=== PATIENT | female | born 1945 | race Caucasian/White ===

== ENCOUNTER 2024-05-08 13:19 | Emergency (ER) | payer MEDICARE, OTHER, SELFPAY ==
--- NOTE | ~2024-05-08 | CT_ITS ---
EXAMINATION: CT brain wo con DATE: 05/08/2024 14:22 INDICATION: AMS/syncope . TECHNIQUE: Computed tomography (CT) of the head was performed without intravenous contrast. The mA wa s adjusted according to patient size. Iterative reconstruction technique was employed. The dose-lengt h product was 908.00 mGy-cm. COMPARISON: None. FINDINGS: No acute intracranial hemorrhage or extra-axial fluid collection. No hydrocephalus, mass, or herniation. No acute ischemic infarct. Unremarkable dural venous sinus attenuation. No acute osseous abnormality. Trace left mastoid fluid, the remaining aerated spaces are clear. Moderate atrophy and chronic white matter change. Atherosclerotic intracranial calcification. Bilater al lens replacements. IMPRESSION: No acute intracranial process. Reviewed, dictated and finalized at location K.
--- NOTE | ~2024-05-08 | XR_ITS ---
EXAMINATION: XR chest 1V portable Exam Date/Time: 05/08/2024 14:53 CDT HISTORY: h/o CHF; syncope Comparison: None. RESULT: Lines, tubes, and devices: None. Lungs and pleura: Clear. Cardiomediastinal silhouette: Unremarkable. Other: No acute osseous or upper abdominal finding. IMPRESSION: No acute cardiopulmonary process. Reviewed, dictated and finalized at location K.
[2024-05-08 13:25] VITALS: BP 106/64; PULSE 76; RESP 16; TEMP 36.6; O2SAT 100
[2024-05-08 13:31] VITALS: PULSE 80
--- NOTE | 2024-05-08 13:32 | ECG_ITS ---
Test Date: 2024-05-08 13:39:26 Measurements Intervals [place] Rate: 73 P: -64 ID: [id number] QRS: -46 QRSD: 114 T: 13 QT: 367 QTc: 406 Interpretive Statements JUNCTIONAL RHYTHM PATTERN CONSISTENT WITH PULMONARY DISEASE LEFT ANTERIOR FASCICULAR BLOCK [QRS AXIS <= -45, QR IN I, RS IN II] MINIMAL VOLTAGE CRITERIA FOR LVH, CONSIDER NORMAL VARIANT [MEETS CRITERIA IN ONE OF: R(aVL), S(V1), R(V5), R(V5/V6)+S(V1)] No previous ECG available for comparison Electronically Signed On 05-08-2024 13:50:54 CDT by Ralph Hirsch M.D.
[2024-05-08 14:17] LABS: Basophils Absolute Auto 0.1 K/mm3 (0.0-0.1); Basophils Percent Auto 0.8 % (0.2-1.2); Eosinophils Absolute Auto 0.1 K/mm3 (0-0.3); Eosinophils Percent Auto 1.8 % (0-4.4); Hemoglobin 12.7 g/dL (12.0-15.0); Immature Granulocyte Absolute 0.02 K/mm3 (0.00-0.031); Immature Granulocyte Percent A 0.3 % (0-0.5); Lymphocytes Absolute Auto 1.86 K/mm3 (0.9-3.2); Lymphocytes Percent Auto 27.9 % (18.3-44.2); Mean Corpuscular HGB Conc 33.4 g/dl (32-36); Mean Corpuscular Hemoglobin 31.8 pg (26-34); Mean Corpuscular Volume 95.2 fl (80-100); Mean Platelet Volume 9.9 fl (7.4-10.4); Monocytes Absolute Auto 0.6 K/mm3 (0.1-0.6); Monocytes Percent Auto 9.6 % (2.6-8.5); Neutrophils Percent Auto 59.6 % (45.5-73.1); Platelet Count Result 226 k/mm3 (150-375); Red Blood Count 3.99 M/mm3 (4.2-5.4); White Blood Count 6.7 K/mm3 (4.5-10.0)
[2024-05-08 14:24] LABS: Alanine Aminotransferase 12 U/L (6-35); Albumin Level 3.9 g/dL (3.5-5.1); Alkaline Phosphatase 87 U/L (38-126); Anion Gap 4 mmol/L (4-12); Aspartate Amino Transferase 20 U/L (14-36); Bilirubin,Total 0.5 mg/dL (0.2-1.3); Blood Urea Nitrogen 17 mg/dL (7-17); Calcium 9.5 mg/dL (8.4-10.2); Carbon Dioxide 27 mmol/L (22-30); Chloride 105 mmol/L (98-107); Estimated CRCL calculation 50 ml/min; Estimated Glomerular Filt Rate 60; Glucose 107 mg/dL (65-110); Potassium 4.3 mmol/L (3.4-5.0); Sodium 136 mmol/L (137-145)
[2024-05-08 14:33] LABS: NT Pro B Type Natriuretic Pept 214 pg/mL (19.9-100)
[2024-05-08 15:22] VITALS: BP 101/54; PULSE 88; RESP 20; O2SAT 98
--- NOTE | 2024-05-08 19:41 | ED.SYNCOPE ---
HPI - Syncope General Chief Complaint: Weakness Stated Complaint: weakness Time Seen by Provider: 05/08/24 13:24 History of Present Illness HPI narrative: patient was at a restaurant eating lunch with her family when she suddenly felt like she was going to pass out, she got lightheaded, and then slumped over in her chair. This happened a few more times and then she came back to normal, her family convinced her to come to the emergency room. She has a remote history of CHF for which she does not take medications and does not see doctors. Related Data Allergies Allergy/AdvReac Type Severity Reaction Status Date / Time No Known Allergies Allergy Verified 05/08/24 13:48 Review of Systems Review of Systems: All systems reviewed & are unremarkable except as noted in HPI and below PMFSH Social History Social History Smoking status: Former smoker Alcohol intake: never Exam Narrative: EXAMINATION OF ORGAN SYSTEMS/BODY AREAS: Constitutional: Vital signs per nursing GENERAL:[No acute distress, non-toxic appearing.] HEAD: Normal with no signs of head trauma. EYES: EOMI, conjunctiva normal ENT: Hearing grossly intact LUNGS: Nonlabored breathing. HEART: [Regular rate and rhythm] ABD: [Soft], [nontender to palpation] EXT: Normal range of motion SKIN: [No rashes or lesions.] NEURO: [Alert and oriented x 3. No gross focal sensory or strength deficits.] PSYCH: Normal affect Course Vital Signs Vital signs: Vital Signs Temperature 97.8 F 05/08/24 13:25 Pulse Rate 76 05/08/24 13:25 Respiratory Rate 16 05/08/24 13:25 Blood Pressure 106/64 05/08/24 13:25 Pulse Oximetry 100 05/08/24 13:25 Oxygen Delivery Room Air 05/08/24 13:25 Temperature 97.8 F 05/08/24 13:25 Pulse Rate 88 05/08/24 15:22 Respiratory Rate 20 05/08/24 15:22 Blood Pressure 101/54 L 05/08/24 15:22 Pulse Oximetry 98 05/08/24 15:22 Oxygen Delivery Room Air 05/08/24 13:25 MDM - Syncope MDM Narrative Medical decision making narrative: patient was at a restaurant eating lunch with her family when she suddenly felt like she was going to pass out, she got lightheaded, and then slumped over in her chair. This happened a few more times and then she came back to normal, her family convinced her to come to the emergency room. She has a remote history of CHF for which she does not take medications and does not see doctors. She is very adamant that she does not want anything to prolong her life; did consent to workup here but does not want to stay for anything further. EKG shows junctional rhythm rate 73, ND 126, QRS 114, QTC 406, left axis, no obvious ST elevations or depressions, On my independent interpretation. chest x-ray clear, head CT normal, labs within acceptable limits. Patient requesting to be discharged at this time, she is denying any complaints at all. I will give her follow-up to PCP and Cardiology, and have her return for any further issues. Lab Data 05/08/24 14:06 05/08/24 14:06 Labs: Lab Results 05/08/24 Range/Units 14:06 WBC 6.7 (4.5-10.0) K/mm3 RBC 3.99 L (4.2-5.4) M/mm3 Hgb 12.7 (12.0-15.0) g/dL Hct 38.0 (37.0-47.0) % MCV 95.2 (80-100) fl MCH 31.8 (26-34) pg MCHC 33.4 (32-36) g/dl RDW 14.0 (11.5-14.5) % Plt Count 226 (150-375) k/mm3 MPV 9.9 (7.4-10.4) fl Immature Gran % (Auto) 0.3 (0-0.5) % Neut % (Auto) 59.6 (45.5-73.1) % Lymph % (Auto) 27.9 (18.3-44.2) % [place] % (Auto) 9.6 H (2.6-8.5) % Eos % (Auto) 1.8 (0-4.4) % Baso % (Auto) 0.8 (0.2-1.2) % Lymph # (Auto) 1.86 (0.9-3.2) K/mm3 [place] # (Auto) 0.6 (0.1-0.6) K/mm3 Eos # (Auto) 0.1 (0-0.3) K/mm3 Baso # (Auto) 0.1 (0.0-0.1) K/mm3 Abs Immat Gran (auto) 0.02 (0.00-0.031) K/mm3 Absolute Neuts (auto) 4.0 (1.3-6.7) K/mm3 Absolute Nucleated RBC 0.000 (0.0-0.012) K/mm3 Nucleated RBC % 0.0 (0.0-0.2) % Sodium 136 L (137-145) mmol/L Potassium 4.3 (3.4-5.0) mmol/L Chloride 105 (98-107) mmol/L Carbon Dioxide 27 (22-30) mmol/L Anion Gap 4 (4-12) mmol/L BUN 17 (7-17) mg/dL Creatinine 0.90 (0.7-1.0) mg/dL Estim Creat Clear Calc 50 ml/min Estimated GFR 60 (59 - ) Glucose 107 (65-110) mg/dL Calcium 9.5 (8.4-10.2) mg/dL Magnesium 2.0 (1.6-2.3) mg/dL Total Bilirubin 0.5 (0.2-1.3) mg/dL AST 20 (14-36) U/L ALT 12 (6-35) U/L Alkaline Phosphatase 87 (38-126) U/L NT-Pro-B Natriuret Pep 214 H (19.9-100) pg/mL Total Protein 7.0 (6.3-8.2) g/dL Albumin 3.9 (3.5-5.1) g/dL Discharge Plan Discharge Clinical Impression: Syncope Patient Disposition: Home, Self-Care Condition: Stable Instructions: Antibiotic Form, Syncope in Older Adults (ED) Additional Instructions: Please follow-up with your primary care doctor and hand paster. You can always return to the emergency room for any further issues. Follow-up/Referrals: Joao Lange DO [Physician] - 2 Days Farida Talbot DO [Physician] - 2 Days Brady,MD Aleyda [Primary Care Provider] -
== END 2024-05-08 15:44 | disposition home or self-care (01) ==
PROVIDERS: Emergency Provider Emergency Medicine; PCP Family Medicine
DX: R55 Syncope and collapse (principal); Z87.891 Personal history of nicotine dependence; I44.4 Left anterior fascicular block; R94.31 Abnormal electrocardiogram [ECG] [EKG]
CPT/HCPCS: 36415; 70450; 71045; 80053; 83735; 83880; 85025; 93005; 99284